=== PATIENT | male | born 1975 | race Two or more races ===

== ENCOUNTER 2016-08-21 11:54 | Inpatient (IN) | payer OTHER ==
[2016-08-21 12:53] VITALS: BMI 28.5
--- NOTE | 2016-08-21 15:03 | HP ---
COWS - Scale Resting Pulse: 1= [place] 81-100 Sweatin=Flushed/Facial Moisture Restless Observation: 1= Difficult to Sit Still Pupil Size: 1= Pupils >than Normal Bone or Joint Aches: 2= Severe Diffuse Aches Runny Nose/ Eye Tearin= Runny Nose/Eyes GI Upset > 30mins: 2= Nausea/Diarrhea Tremor Observation: 2= Slight Tremor Visible Yawning Observation: 1= 1-2x During Session Anxiety or Irritability: 2=Irritable/Anxious Goose Flesh Skin: 3=Piloerection COWS Score: 19 Admission ROS S - HPI Chief Complaint: requesting detoxification from heroin and othr opioids Allergies/Adverse Reactions: Allergies Allergy/AdvReac Type Severity Reaction Status Date / Time No Known Allergies Allergy Verified 08/21/16 14:46 History of Present Illness: 40 yo m with long history of opioid dependence started using age 22 withmultiple admissions for detoxification most recently at [facility] last year , deneis MDMA, cocaine, marijuana and oxycodone use, sniffs heroin daily last used today, sniffs cocaine on occasion a few times a week, no h/o injecting drug use of OD reported, no psychitaric illnesses or suicidal ideation. PMHx neg, no on any medications no h/o alcohol dependenced, seizures, DTs or intubation. Exam Limitations: No Limitations - Ebola screening Have you traveled outside of the country in the last 21 days: No Have you had contact with anyone from an Ebola affected area: No Have you been sick,other than usual withdrawal symptoms: No Do you have a fever: No - Review of Systems Constitutional: Chills, Diaphoresis, Loss of Appetite, Unintentional Wgt. Loss ( from drug use), Other (insomnia secondary to withdrawal drinks wine at night to go to sleep) EENT: reports: No Symptoms Reported, Other (lesions on skin on nose , herpes?) Respiratory: reports: No Symptoms reported Cardiac: reports: No Symptoms Reported GI: reports: Nausea, Poor Appetite, Poor Fluid Intake : reports: No Symptoms Reported Musculoskeletal: reports: Back Pain, Joint Pain, Other (from withdrawal) Neuro: reports: Tremors Endocrine: reports: No Symptoms Reported Hematology: reports: No Symptoms Reported Psychiatric: reports: Mood/Affect Appropiate, Orientated x3, Anxious, Depressed Other Systems: Reviewed and Negative Patient History - Patient Medical History Hx Anemia: No Hx Asthma: No Hx Chronic Obstructive Pulmonary Disease (COPD): No Hx Cancer: No Hx Cardiac Disorders: No Hx Congestive Heart Failure: No Hx Hypertension: No Hx Hypercholesterolemia: No Hx Pacemaker: No HX Cerebrovascular Accident: No Hx Seizures: No Hx Dementia: No Hx Diabetes: No Hx Gastrointestinal Disorders: No Hx Liver Disease: No Hx Genitourinary Disorders: No Hx Sexually Transmitted Disorders: No Hx Renal Disease (ESRD): No Hx Thyroid Disease: No Hx Human Immunodeficiency Virus (HIV): No (NEGATIVE last 04/12 NEGATIVE) Hx Hepatitis C: No Hx Depression: No Hx Suicide Attempt: No Hx Bipolar Disorder: No Hx Schizophrenia: No - Patient Surgical History Past Surgical History: Yes Hx Neurologic Surgery: No Hx Cataract Extraction: No Hx Cardiac Surgery: No Hx Lung Surgery: No Hx Breast Surgery: No Hx Breast Biopsy: No Hx Abdominal Surgery: No Hx Appendectomy: Yes ( A CHILD(6-7 YRS OLD)) Hx Cholecystectomy: No Hx Genitourinary Surgery: No Hx Section: No Hx Orthopedic Surgery: No Hx Hysterectomy: No Anesthesia Reaction: No - PPD History Previous Implant?: Yes Documented Results: Positive w/o proof Implanted On Prior [facility] Admission?: No PPD to be Administered?: No - Reproductive History Patient is a Female of Child Bearing Age (11 -55 yrs old): No - Smoking Cessation Smoking history: Current every day smoker Have you smoked in the past 12 months: Yes Aproximately how many cigarettes per day: 10 Cigars Per Day: 0 Hx Chewing Tobacco Use: No Initiated information on smoking cessation: Yes 'Breaking Loose' booklet given: 08/21/16 - Substance & Tx. History Hx Alcohol Use: Yes (1/2 bottle of wine daily , no withdrawal reported) Hx Substance Use: Yes Substance Use Type: Alcohol, Heroin Hx Substance Use Treatment: Yes (detoxifcation at [facility] last year, [facility] in past) - Substances Abused Heroin Route: Inhalation Frequency: Daily Amount used: 3-4 bags Age of first use: 23 Date of Last Use: 08/21/16 Cocaine Route: Inhalation Frequency: 3-6 times per week Amount used: 1/2 gm Age of first use: 17 Date of Last Use: 08/19/16 Family Disease History - Family Disease History Family Disease History: CA: Grandparent (), Father (COLON--ALIVE,ALCOHOL ,DSA), Other: Mother (ALCOHOL,DSA) Admission Physical Exam [facility] - Vital Signs Vital Signs: Vital Signs - 24 hr 08/21/16 12:51 Temperature 97.1 F L Pulse Rate 89 Respiratory 18 Rate Blood Pressure 135/79 - Physical General Appearance: Yes: Nourished, Appropriately Dressed, Disheveled, Mild Distress, Thin, Tremorous, Irritable, Sweating, Anxious HEENTM: Yes: EOMI, Hearing grossly Normal, Normal ENT Inspection, Normocephalic , Normal Voice, SCOOBY, Pharynx Normal Respiratory: Yes: Within Normal Limits, Chest Non-Tender, Lungs Clear, Normal Breath Sounds, No Respiratory Distress, No Accessory Muscle Use Neck: Yes: Within Normal Limits, No masses,lesions,Nodules, Supple Breast: Yes: Breast Exam Deferred Cardiology: Yes: Within Normal Limits, Regular Rhythm, Regular Rate, S1, S2 Abdominal: Yes: Within Normal Limits, Normal Bowel Sounds, Non Tender, Flat, Soft Genitourinary: Yes: Within Normal Limits Back: Yes: Within Normal Limits, Normal Inspection Musculoskeletal: Yes: Within Normal Limits, full range of Motion, Gait Steady Neurological: Yes: bilingual trainer II-XII NML intact, Fully Oriented, Alert, Motor Strength 5/5, Normal Response, Depressed Affect Integumentary: Yes: Normal Color, Warm, Diaphoresis Lymphatic: Yes: Within Normal Limits - Addiitonal Findings: withdrawal sx - Diagnostic (1) Cocaine dependence Current Visit: No Status: Inactive Qualifiers: Substance use status: uncomplicated Qualified Code(s): F14.20 - Cocaine dependence, uncomplicated (2) Alcohol dependence Current Visit: No Status: Inactive (3) Marijuana dependence Current Visit: No Status: Inactive (4) Nicotine dependence Current Visit: Yes Status: Chronic Qualifiers: Nicotine product type: cigarettes Substance use status: uncomplicated Qualified Code(s): F17.210 - Nicotine dependence, cigarettes, uncomplicated (5) Opioid dependence with withdrawal Current Visit: Yes Status: Acute Cleared for Admission [facility] - Detox or Rehab [facility] Level of Care: Medically Managed Detox Regimen/Protocol: Methadone [facility] Breath Alcohol Content Breath Alcohol Content: 0.040 Urine Drug Screen - Results Drug Screen Negative: No Urine Drug Screen Results: THC-Marijuana, YOKO-Cocaine, MDMA-Ecstasy, OXY- Oxycodone
[2016-08-21] MEDS ORDERED: guaiFENesin/D-METHORPHAN HB 10 ML UNIT-DOSE CUPS PO PRN (15:08)
[2016-08-21] MEDS ORDERED: P-EPHED 60MG/TRIPROLIDI 2.5MG TABLET PO PRN (15:08)
[2016-08-21] MEDS ORDERED: MAG HYDROX/AL HYDROX/SIMETH 30 ML UNIT-DOSE CUP PO PRN (15:08)
[2016-08-21] MEDS ORDERED: NICOTINE POLACRILEX 4 MG GUM BC PRN (15:08)
[2016-08-21] MEDS ORDERED: MAGNESIUM CITRATE 300 ML BOTTLE PO PRN (15:08)
[2016-08-21] MEDS ORDERED: ACETAMINOPHEN 325 MG TABLET (FP) PO PRN (15:08)
[2016-08-21] MEDS ORDERED: hydrOXYzine PAMOATE 50 MG CAPSULE (FP) PO PRN (15:08)
[2016-08-21] MEDS ORDERED: LOPERAMIDE HCL 2 MG CAPSULE PO PRN (15:08)
[2016-08-21] MEDS ORDERED: MENTHOL/PHENOL 1 EACH UD MM PRN (15:08)
[2016-08-21] MEDS ORDERED: MAGNESIUM HYDROX 2400MG/30ML ORAL SUSPENSION 30 ML CUP PO PRN (15:08)
[2016-08-21] MEDS ORDERED: METHADONE HCL 10 MG TABLET (FOR DETOX USE ONLY) PO ONE ×2 (16:30→23:00)
[2016-08-21] MEDS: diazePAM 5 MG TABLET PO PRN ×2 (17:29→22:18)
[2016-08-21] MEDS: BACITRACIN 0.9 GM PACKET TP SCH (17:29)
[2016-08-21] MEDS: NICOTINE 21 MG/24 HOURS TOPICAL PATCH TD SCH (17:30)
[2016-08-21 20:33] LABS: URINE APPEARANCE SLCLOUDY; URINE BILIRUBIN NEGATIVE (NEGATIVE); URINE BLOOD NEGATIVE (NEGATIVE); URINE COLOR YELLOW; URINE GLUCOSE (UA) NEGATIVE (NEGATIVE); URINE KETONE NEGATIVE (NEGATIVE); URINE LEUK ESTERASE NEGATIVE (NEGATIVE); URINE NITRITE NEGATIVE (NEGATIVE); URINE PROTEIN NEGATIVE (NEGATIVE); URINE UROBILINOGEN NEGATIVE E.U./dl (0.2-1.0)
[2016-08-21] MEDS: diphenhydrAMINE HCL 50 MG CAPSULE PO PRN (22:18)
[2016-08-21] MEDS: THIAMINE HCL 100 MG TABLET (FP) PO SCH (22:18)
[2016-08-22 09:36] LABS: HIV 1 & 2 AB NEGATIVE; HIV 1 AGp24 NEGATIVE
[2016-08-22] MEDS ORDERED: METHADONE HCL 10 MG TABLET (FOR DETOX USE ONLY) PO ONE (10:00)
[2016-08-22] MEDS: PRENATAL VITAMINS W/ FOLIC ACID TABLET (FP) PO SCH (10:16)
[2016-08-22] MEDS: BACITRACIN 0.9 GM PACKET TP SCH (10:16)
[2016-08-22] MEDS: NICOTINE 21 MG/24 HOURS TOPICAL PATCH TD SCH (10:17)
[2016-08-22] MEDS: diazePAM 5 MG TABLET PO PRN ×3 (10:17→22:41)
--- NOTE | 2016-08-22 10:20 | CONSULT ---
[facility] Psychiatric Consult - Data Date of interview: 08/22/16 Admission source: [facility] Identifying data: This is 40 years old male with no psychiatric hospitalization history intoxicated with : Cocaine, Heroin and Nicotine Substance Abuse History: - Smoking Cessation. Smoking history: Current every day smoker. Have you smoked in the past 12 months: Yes. Aproximately how many cigarettes per day: 10. Cigars Per Day: 0. Hx Chewing Tobacco Use: No. Initiated information on smoking cessation: Yes. 'Breaking Loose' booklet given : 08/21/16. - Substance & Tx. History. Hx Alcohol Use: Yes (1/2 bottle of wine daily , no withdrawal reported). Hx Substance Use: Yes. Substance Use Type: Alcohol, Heroin. Hx Substance Use Treatment: Yes (detoxifcation at [place] last year, [facility] in past). - Substances Abused. Heroin. Route: Inhalation. Frequency: Daily. Amount used: 3-4 bags. Age of first use: 23. Date of Last Use: 08/21/16. Cocaine. Route: Inhalation. Frequency: 3-6 times per week. Amount used: 1/2 gm. Age of first use: 17. Date of Last Use: 08/19/16 Medical History: Denies Psychiatric History: Denies Physical/Sexual Abuse/Trauma History: Denies Additional Comment: Observation. Detox Unit Care Protocol Mental Status Exam - Mental Status Exam Alert and Oriented to: Person Cognitive Function: Fair Patient Appearance: Unkempt Mood: Sad Affect: Flat Patient Behavior: Sedated Speech Pattern: Delayed Voice Loudness: Mildly Soft/Quiet Thought Process: Circumstantial Thought Disorder: Being Controlled Hallucinations: Denies Suicidal Ideation: Denies Homicidal Ideation: Denies Insight/Judgement: Fair Sleep: Difficulty falling asleep Appetite: Fair Muscle strength/Tone: Mild Hypotonicity Gait/Station: Shuffling Additional Comments: Observation. Detox Unit Care Protocol Psychiatric Findings - Problem List ([place] 1, 2,3) (1) Opioid dependence with withdrawal Current Visit: Yes Status: Acute (2) Nicotine dependence Current Visit: Yes Status: Chronic Qualifiers: Nicotine product type: cigarettes Substance use status: uncomplicated Qualified Code(s): F17.210 - Nicotine dependence, cigarettes, uncomplicated (3) Alcohol dependence Current Visit: Yes Status: Acute (4) Cannabis abuse Current Visit: Yes Status: Acute - Initial Treatment Plan Initial Treatment Plan: Observation. Detox Unit Care Protocol
[2016-08-22 10:49] LABS: MCH 29.9 pg (25.7-33.7); MCHC 33.7 g/dl (32.0-35.9); MEAN CELL VOLUME 88.7 fl (80-96); PLATELET COUNT 249 K/MM3 (134-434); RDW 14.2 % (11.9-15.9); WHITE BLOOD COUNT 10.3 K/mm3 (4.0-10.0)
[2016-08-22 10:53] LABS: ALBUMIN 3.9 g/dl (3.4-5.0); ALK PHOS 122 U/L (45-117); ANION GAP 10 (8-16); BILIRUBIN,TOTAL 0.2 mg/dL (0.2-1.0); CALCIUM 8.6 mg/dL (8.5-10.1); CO2 28 mmol/L (21-32); CREATININE 1.2 mg/dL (0.7-1.3); GLUCOSE,RANDOM 91 mg/dL (74-106); SGOT/AST 21 U/L (15-37); SGPT/ALT 28 U/L (12-78)
--- NOTE | 2016-08-22 12:30 | EKG ---
Test Reason : Blood Pressure : / mmHG Vent. Rate : 083 BPM Atrial Rate : 083 BPM P-R Int : 146 ms QRS Dur : 086 ms QT Int : 378 ms P-R-T Axes : 068 068 034 degrees QTc Int : 444 ms NORMAL SINUS RHYTHM NORMAL ECG NO PREVIOUS ECGS AVAILABLE Confirmed by LAYO FLORES, BRAYAN ([id number]) on 08/22/2016 12:30:19 PM Referred By: Confirmed By:BRAYAN VASQUES MD
[2016-08-22] MEDS: IBUPROFEN 400 MG TABLET (FP) PO PRN (13:06)
--- NOTE | 2016-08-22 14:28 | PN ---
BHS COWS - Scale Resting Pulse: 1= [place] 81-100 Sweatin= Chills/Flushing Restless Observation: 1= Difficult to Sit Still Pupil Size: 1= Pupils >than Normal Bone or Joint Aches: 1= Mild Discomfort Runny Nose/ Eye Tearin= Nasal Congestion GI Upset > 30mins: 1= Stomach Cramp Tremor Observation of Outstretched Hands: 1= Tremor [place], Not Seen Yawning Observation: 0= None Anxiety or Irritability: 2=Irritable/Anxious Goose Flesh Skin: 0=Smooth Skin COWS Score: 10 BHS Progress Note (SOAP) Subjective: interrupted sleep, sweats, otherwise better Objective: 08/22/16 14:26 Vital Signs Temperature 98.6 F 08/22/16 14:11 Pulse Rate 91 H 08/22/16 14:11 Respiratory Rate 20 08/22/16 14:11 Blood Pressure 105/64 08/22/16 14:11 O2 Sat by Pulse Oximetry (%) Laboratory Tests 08/21/16 08/21/16 08/22/16 14:00 19:00 06:00 WBC 10.3 H RBC 4.94 Hgb 14.7 Hct 43.8 MCV 88.7 MCHC 33.7 RDW 14.2 Plt Count 249 MPV 9.0 Sodium Potassium Chloride Carbon Dioxide Anion Gap BUN Creatinine Creat Clearance w eGFR Random Glucose Calcium Total Bilirubin AST ALT Alkaline Phosphatase Total Protein Albumin Urine Color Yellow Urine Appearance Slcloudy Urine pH 7.0 Ur Specific [place] 1.021 Urine Protein Negative Urine Glucose (UA) Negative Urine Ketones Negative Urine Blood Negative Urine Nitrite Negative Urine Bilirubin Negative Urine Urobilinogen Negative Ur Leukocyte Esterase Negative RPR Titer HIV 1&2 Antibody Screen Negative HIV P24 Antigen Negative 08/22/16 08/22/16 06:00 06:00 WBC RBC Hgb Hct MCV MCHC RDW Plt Count MPV Sodium 138 Potassium 4.1 Chloride 100 Carbon Dioxide 28 Anion Gap 10 BUN 15 Creatinine 1.2 Creat Clearance w eGFR > 60 Random Glucose 91 D Calcium 8.6 Total Bilirubin 0.2 D AST 21 ALT 28 D Alkaline Phosphatase 122 H Total Protein 7.0 Albumin 3.9 Urine Color Urine Appearance Urine pH Ur Specific [place] Urine Protein Urine Glucose (UA) Urine Ketones Urine Blood Urine Nitrite Urine Bilirubin Urine Urobilinogen Ur Leukocyte Esterase RPR Titer Nonreactive HIV 1&2 Antibody Screen HIV P24 Antigen pt aox3 in nad ambulating Assessment: 08/22/16 14:27 withdrawl sx;s Plan: cont. detox increase fluids
[2016-08-22] MEDS: THIAMINE HCL 100 MG TABLET (FP) PO SCH (22:38)
[2016-08-22] MEDS: diphenhydrAMINE HCL 50 MG CAPSULE PO PRN (22:39)
[2016-08-23] MEDS: diazePAM 5 MG TABLET PO PRN ×4 (06:03→22:37)
[2016-08-23] MEDS ORDERED: METHADONE HCL 5 MG TABLET (FOR DETOX USE ONLY) PO ONE (10:00)
[2016-08-23] MEDS: PRENATAL VITAMINS W/ FOLIC ACID TABLET (FP) PO SCH (10:10)
[2016-08-23] MEDS: BACITRACIN 0.9 GM PACKET TP SCH (10:11)
[2016-08-23] MEDS: NICOTINE 21 MG/24 HOURS TOPICAL PATCH TD SCH (10:11)
--- NOTE | 2016-08-23 11:49 | PN ---
S COWS - Scale Resting Pulse: 1= [place] 81-100 Sweatin= Chills/Flushing Restless Observation: 3= Extraneous Movement Pupil Size: 2= Moderately Dilated Bone or Joint Aches: 4=Acute Joint/Muscle Pain Runny Nose/ Eye Tearin= Nasal Congestion GI Upset > 30mins: 1= Stomach Cramp Tremor Observation of Outstretched Hands: 1= Tremor [place], Not Seen Yawning Observation: 2= >3x During Session Anxiety or Irritability: 2=Irritable/Anxious Goose Flesh Skin: 0=Smooth Skin COWS Score: 18 BHS Progress Note (SOAP) Subjective: ANXIETY,SWEATS,FATIGUE. Objective: 08/23/16 12:03 Vital Signs Temperature 97.0 F L 08/23/16 10:36 Pulse Rate 89 08/23/16 10:36 Respiratory Rate 20 08/23/16 10:36 Blood Pressure 115/76 08/23/16 10:36 O2 Sat by Pulse Oximetry (%) Laboratory Last Values WBC 10.3 K/mm3 (4.0-10.0) H 08/22/16 06:00 RBC 4.94 M/mm3 (4.00-5.60) 08/22/16 06:00 Hgb 14.7 GM/dL (11.7-16.9) 08/22/16 06:00 Hct 43.8 % (35.4-49) 08/22/16 06:00 MCV 88.7 fl (80-96) 08/22/16 06:00 MCHC 33.7 g/dl (32.0-35.9) 08/22/16 06:00 RDW 14.2 % (11.9-15.9) 08/22/16 06:00 Plt Count 249 K/MM3 (134-434) 08/22/16 06:00 MPV 9.0 fl (7.5-11.1) 08/22/16 06:00 Sodium 138 mmol/L (136-145) 08/22/16 06:00 Potassium 4.1 mmol/L (3.5-5.1) 08/22/16 06:00 Chloride 100 mmol/L (98-107) 08/22/16 06:00 Carbon Dioxide 28 mmol/L (21-32) 08/22/16 06:00 Anion Gap 10 (8-16) 08/22/16 06:00 BUN 15 mg/dL (7-18) 08/22/16 06:00 Creatinine 1.2 mg/dL (0.7-1.3) 08/22/16 06:00 Creat Clearance w eGFR > 60 (>60) 08/22/16 06:00 Random Glucose 91 mg/dL (74-106) D 08/22/16 06:00 Calcium 8.6 mg/dL (8.5-10.1) 08/22/16 06:00 Total Bilirubin 0.2 mg/dL (0.2-1.0) D 08/22/16 06:00 AST 21 U/L (15-37) 08/22/16 06:00 ALT 28 U/L (12-78) D 08/22/16 06:00 Alkaline Phosphatase 122 U/L (45-117) H 08/22/16 06:00 Total Protein 7.0 g/dl (6.4-8.2) 08/22/16 06:00 Albumin 3.9 g/dl (3.4-5.0) 08/22/16 06:00 Urine Color Yellow 08/21/16 19:00 Urine Appearance Slcloudy 08/21/16 19:00 Urine pH 7.0 (5.0-8.0) 08/21/16 19:00 Ur Specific [place] 1.021 (1.001-1.035) 08/21/16 19:00 Urine Protein Negative (NEGATIVE) 08/21/16 19:00 Urine Glucose (UA) Negative (NEGATIVE) 08/21/16 19:00 Urine Ketones Negative (NEGATIVE) 08/21/16 19:00 Urine Blood Negative (NEGATIVE) 08/21/16 19:00 Urine Nitrite Negative (NEGATIVE) 08/21/16 19:00 Urine Bilirubin Negative (NEGATIVE) 08/21/16 19:00 Urine Urobilinogen Negative E.U./dl (0.2-1.0) 08/21/16 19:00 Ur Leukocyte Esterase Negative (NEGATIVE) 08/21/16 19:00 RPR Titer Nonreactive (NONREACTIVE) 08/22/16 06:00 HIV 1&2 Antibody Screen Negative 08/21/16 14:00 HIV P24 Antigen Negative 08/21/16 14:00 Assessment: 08/23/16 12:03 WITHDRAWAL SX Plan: CONTINUE DETOX
[2016-08-23] MEDS: THIAMINE HCL 100 MG TABLET (FP) PO SCH (22:37)
[2016-08-23] MEDS: diphenhydrAMINE HCL 50 MG CAPSULE PO PRN (22:37)
[2016-08-24] MEDS: diazePAM 5 MG TABLET PO PRN ×3 (05:43→14:10)
[2016-08-24] MEDS ORDERED: METHADONE HCL 5 MG TABLET (FOR DETOX USE ONLY) PO ONE (10:00)
[2016-08-24] MEDS: NICOTINE 21 MG/24 HOURS TOPICAL PATCH TD SCH (10:08)
[2016-08-24] MEDS: PRENATAL VITAMINS W/ FOLIC ACID TABLET (FP) PO SCH (10:08)
[2016-08-24] MEDS: BACITRACIN 0.9 GM PACKET TP SCH (10:08)
--- NOTE | 2016-08-24 10:44 | PN ---
S COWS - Scale Resting Pulse: 1= ME 81-100 Sweatin= Chills/Flushing Restless Observation: 3= Extraneous Movement Pupil Size: 2= Moderately Dilated Bone or Joint Aches: 4=Acute Joint/Muscle Pain Runny Nose/ Eye Tearin= Nasal Congestion GI Upset > 30mins: 1= Stomach Cramp Tremor Observation of Outstretched Hands: 1= Tremor [place], Not Seen Yawning Observation: 2= >3x During Session Anxiety or Irritability: 2=Irritable/Anxious Goose Flesh Skin: 0=Smooth Skin COWS Score: 18 BHS Progress Note (SOAP) Subjective: ANXIETY,SWEAT,RESTLESSNESS. Objective: 08/24/16 10:43 Vital Signs Temperature 97.5 F L 08/24/16 09:56 Pulse Rate 100 H 08/24/16 09:56 Respiratory Rate 20 08/24/16 09:56 Blood Pressure 127/80 08/24/16 09:56 O2 Sat by Pulse Oximetry (%) Laboratory Last Values WBC 10.3 K/mm3 (4.0-10.0) H 08/22/16 06:00 RBC 4.94 M/mm3 (4.00-5.60) 08/22/16 06:00 Hgb 14.7 GM/dL (11.7-16.9) 08/22/16 06:00 Hct 43.8 % (35.4-49) 08/22/16 06:00 MCV 88.7 fl (80-96) 08/22/16 06:00 MCHC 33.7 g/dl (32.0-35.9) 08/22/16 06:00 RDW 14.2 % (11.9-15.9) 08/22/16 06:00 Plt Count 249 K/MM3 (134-434) 08/22/16 06:00 MPV 9.0 fl (7.5-11.1) 08/22/16 06:00 Sodium 138 mmol/L (136-145) 08/22/16 06:00 Potassium 4.1 mmol/L (3.5-5.1) 08/22/16 06:00 Chloride 100 mmol/L (98-107) 08/22/16 06:00 Carbon Dioxide 28 mmol/L (21-32) 08/22/16 06:00 Anion Gap 10 (8-16) 08/22/16 06:00 BUN 15 mg/dL (7-18) 08/22/16 06:00 Creatinine 1.2 mg/dL (0.7-1.3) 08/22/16 06:00 Creat Clearance w eGFR > 60 (>60) 08/22/16 06:00 Random Glucose 91 mg/dL (74-106) D 08/22/16 06:00 Calcium 8.6 mg/dL (8.5-10.1) 08/22/16 06:00 Total Bilirubin 0.2 mg/dL (0.2-1.0) D 08/22/16 06:00 AST 21 U/L (15-37) 08/22/16 06:00 ALT 28 U/L (12-78) D 08/22/16 06:00 Alkaline Phosphatase 122 U/L (45-117) H 08/22/16 06:00 Total Protein 7.0 g/dl (6.4-8.2) 08/22/16 06:00 Albumin 3.9 g/dl (3.4-5.0) 08/22/16 06:00 Urine Color Yellow 08/21/16 19:00 Urine Appearance Slcloudy 08/21/16 19:00 Urine pH 7.0 (5.0-8.0) 08/21/16 19:00 Ur Specific [place] 1.021 (1.001-1.035) 08/21/16 19:00 Urine Protein Negative (NEGATIVE) 08/21/16 19:00 Urine Glucose (UA) Negative (NEGATIVE) 08/21/16 19:00 Urine Ketones Negative (NEGATIVE) 08/21/16 19:00 Urine Blood Negative (NEGATIVE) 08/21/16 19:00 Urine Nitrite Negative (NEGATIVE) 08/21/16 19:00 Urine Bilirubin Negative (NEGATIVE) 08/21/16 19:00 Urine Urobilinogen Negative E.U./dl (0.2-1.0) 08/21/16 19:00 Ur Leukocyte Esterase Negative (NEGATIVE) 08/21/16 19:00 RPR Titer Nonreactive (NONREACTIVE) 08/22/16 06:00 HIV 1&2 Antibody Screen Negative 08/21/16 14:00 HIV P24 Antigen Negative 08/21/16 14:00 Assessment: 08/24/16 10:44 WITHDRAWAL SX Plan: CONTINUE DETOX
[2016-08-24] MEDS: THIAMINE HCL 100 MG TABLET (FP) PO SCH (22:01)
[2016-08-24] MEDS: diphenhydrAMINE HCL 50 MG CAPSULE PO PRN (22:01)
[2016-08-25] MEDS: IBUPROFEN 400 MG TABLET (FP) PO PRN (05:32)
--- NOTE | 2016-08-25 09:03 | PN ---
BHS Progress Note (SOAP) Subjective: sweating,interrupted sleep,restless Objective: 08/25/16 09:02 Vital Signs - 8 hr 08/25/16 08/25/16 03:23 06:30 Temperature 96.5 F L Pulse Rate 96 H Respiratory 18 18 Rate Blood Pressure 134/72 Laboratory Last Values WBC 10.3 K/mm3 (4.0-10.0) H 08/22/16 06:00 RBC 4.94 M/mm3 (4.00-5.60) 08/22/16 06:00 Hgb 14.7 GM/dL (11.7-16.9) 08/22/16 06:00 Hct 43.8 % (35.4-49) 08/22/16 06:00 MCV 88.7 fl (80-96) 08/22/16 06:00 MCHC 33.7 g/dl (32.0-35.9) 08/22/16 06:00 RDW 14.2 % (11.9-15.9) 08/22/16 06:00 Plt Count 249 K/MM3 (134-434) 08/22/16 06:00 MPV 9.0 fl (7.5-11.1) 08/22/16 06:00 Sodium 138 mmol/L (136-145) 08/22/16 06:00 Potassium 4.1 mmol/L (3.5-5.1) 08/22/16 06:00 Chloride 100 mmol/L (98-107) 08/22/16 06:00 Carbon Dioxide 28 mmol/L (21-32) 08/22/16 06:00 Anion Gap 10 (8-16) 08/22/16 06:00 BUN 15 mg/dL (7-18) 08/22/16 06:00 Creatinine 1.2 mg/dL (0.7-1.3) 08/22/16 06:00 Creat Clearance w eGFR > 60 (>60) 08/22/16 06:00 Random Glucose 91 mg/dL (74-106) D 08/22/16 06:00 Calcium 8.6 mg/dL (8.5-10.1) 08/22/16 06:00 Total Bilirubin 0.2 mg/dL (0.2-1.0) D 08/22/16 06:00 AST 21 U/L (15-37) 08/22/16 06:00 ALT 28 U/L (12-78) D 08/22/16 06:00 Alkaline Phosphatase 122 U/L (45-117) H 08/22/16 06:00 Total Protein 7.0 g/dl (6.4-8.2) 08/22/16 06:00 Albumin 3.9 g/dl (3.4-5.0) 08/22/16 06:00 Urine Color Yellow 08/21/16 19:00 Urine Appearance Slcloudy 08/21/16 19:00 Urine pH 7.0 (5.0-8.0) 08/21/16 19:00 Ur Specific [place] 1.021 (1.001-1.035) 08/21/16 19:00 Urine Protein Negative (NEGATIVE) 08/21/16 19:00 Urine Glucose (UA) Negative (NEGATIVE) 08/21/16 19:00 Urine Ketones Negative (NEGATIVE) 08/21/16 19:00 Urine Blood Negative (NEGATIVE) 08/21/16 19:00 Urine Nitrite Negative (NEGATIVE) 08/21/16 19:00 Urine Bilirubin Negative (NEGATIVE) 08/21/16 19:00 Urine Urobilinogen Negative E.U./dl (0.2-1.0) 08/21/16 19:00 Ur Leukocyte Esterase Negative (NEGATIVE) 08/21/16 19:00 RPR Titer Nonreactive (NONREACTIVE) 08/22/16 06:00 Hepatitis C Antibody <0.1 s/co ratio (0.0-0.9) 08/21/16 11:50 HIV 1&2 Antibody Screen Negative 08/21/16 14:00 HIV P24 Antigen Negative 08/21/16 14:00 labs noted Assessment: 08/25/16 09:03 withdrawal sx. Plan: continue detox
[2016-08-25] MEDS ORDERED: METHADONE HCL 10 MG TABLET (FOR DETOX USE ONLY) PO ONE (10:00)
[2016-08-25] MEDS: NICOTINE 21 MG/24 HOURS TOPICAL PATCH TD SCH (10:17)
[2016-08-25] MEDS: PRENATAL VITAMINS W/ FOLIC ACID TABLET (FP) PO SCH (10:17)
[2016-08-25] MEDS: BACITRACIN 0.9 GM PACKET TP SCH (10:17)
[2016-08-25] MEDS: diphenhydrAMINE HCL 50 MG CAPSULE PO PRN (22:25)
[2016-08-25] MEDS: THIAMINE HCL 100 MG TABLET (FP) PO SCH (22:25)
[2016-08-26] MEDS: diphenhydrAMINE HCL 50 MG CAPSULE PO PRN (00:41)
[2016-08-26] MEDS ORDERED: METHADONE HCL 5 MG TABLET (FOR DETOX USE ONLY) PO ONE (06:00)
[2016-08-26 06:28] VITALS: BP 120/80; PULSE 94; TEMP 97.1
--- NOTE | 2016-08-26 11:06 | DS ---
[facility] Detox Discharge Summary Admission Date: 08/21/16 Discharge Date: 08/26/16 - History Present History: Alcohol Dependence, Cocaine Dependence, Opioid Dependence Pertinent Past History: Positive PPD (had chest xray 05/2016 negative) - Physical Exam Results Vital Signs: Vital Signs Temperature 97.1 F L 08/26/16 06:27 Pulse Rate 94 H 08/26/16 06:27 Respiratory Rate 18 08/26/16 06:27 Blood Pressure 120/80 08/26/16 06:27 O2 Sat by Pulse Oximetry (%) Pertinent Admission Physical Exam Findings: Withdrawal symptoms Laboratory Tests 08/21/16 08/21/16 08/21/16 11:50 14:00 19:00 WBC RBC Hgb Hct MCV MCHC RDW Plt Count MPV Sodium Potassium Chloride Carbon Dioxide Anion Gap BUN Creatinine Creat Clearance w eGFR Random Glucose Calcium Total Bilirubin AST ALT Alkaline Phosphatase Total Protein Albumin Urine Color Yellow Urine Appearance Slcloudy Urine pH 7.0 Ur Specific [place] 1.021 Urine Protein Negative Urine Glucose (UA) Negative Urine Ketones Negative Urine Blood Negative Urine Nitrite Negative Urine Bilirubin Negative Urine Urobilinogen Negative Ur Leukocyte Esterase Negative RPR Titer Hepatitis C Antibody <0.1 HIV 1&2 Antibody Screen Negative HIV P24 Antigen Negative 08/22/16 08/22/16 08/22/16 06:00 06:00 06:00 WBC 10.3 H RBC 4.94 Hgb 14.7 Hct 43.8 MCV 88.7 MCHC 33.7 RDW 14.2 Plt Count 249 MPV 9.0 Sodium 138 Potassium 4.1 Chloride 100 Carbon Dioxide 28 Anion Gap 10 BUN 15 Creatinine 1.2 Creat Clearance w eGFR > 60 Random Glucose 91 D Calcium 8.6 Total Bilirubin 0.2 D AST 21 ALT 28 D Alkaline Phosphatase 122 H Total Protein 7.0 Albumin 3.9 Urine Color Urine Appearance Urine pH Ur Specific [place] Urine Protein Urine Glucose (UA) Urine Ketones Urine Blood Urine Nitrite Urine Bilirubin Urine Urobilinogen Ur Leukocyte Esterase RPR Titer Nonreactive Hepatitis C Antibody HIV 1&2 Antibody Screen HIV P24 Antigen Labs noted DI: Chest xray 05/2016 negative - Treatment Hospital Course: Detox Protocol Followed, Detoxed Safely, Responded well, Discharged Condition Good - Medication Discharge Medications: Ambulatory Orders NK [No Known Home Medication] 04/25/15 - Diagnosis (1) Cannabis abuse Status: Chronic (2) Opioid dependence with withdrawal Status: Acute (3) Nicotine dependence Status: Chronic Qualifiers: Nicotine product type: cigarettes Substance use status: uncomplicated Qualified Code(s): F17.210 - Nicotine dependence, cigarettes, uncomplicated (4) Alcohol dependence with uncomplicated withdrawal Status: Acute (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
== END 2016-08-26 08:31 | disposition home or self-care (01) | DRG 773 ==
LOC: YASAS 11:54 → Y6N 15:47 → Y3N 08-22 14:25
PROVIDERS: ADMIT Internal Medicine Addiction Medicine; ATTEND Internal Medicine Addiction Medicine
PROC: HZ2ZZZZ Detoxification Services for Substance Abuse Treatment (ICD-10-PCS; principal; 2016-08-21)
DX: F11.23 Opioid dependence with withdrawal (principal); F10.230 Alcohol dependence with withdrawal, uncomplicated; F14.20 Cocaine dependence, uncomplicated; F12.20 Cannabis dependence, uncomplicated; F17.210 Nicotine dependence, cigarettes, uncomplicated; R76.11 Nonspecific reaction to tuberculin skin test without active tuberculosis
CPT/HCPCS: 36415; 80053; 81003; 85027; 86593; 86803; 87389; 93005; 93010

== ENCOUNTER 2017-12-03 12:56 | Inpatient (IN) | payer OTHER ==
[2017-12-03 14:41] VITALS: BMI 28.2
--- NOTE | 2017-12-03 20:59 | HP ---
COWS - Scale Resting Pulse: 0= [place] 80 or Below Sweatin=Flushed/Facial Moisture Restless Observation: 1= Difficult to Sit Still Pupil Size: 1= Pupils >than Normal Bone or Joint Aches: 2= Severe Diffuse Aches Runny Nose/ Eye Tearin= Runny Nose/Eyes GI Upset > 30mins: 1= Stomach Cramp Tremor Observation: 2= Slight Tremor Visible Yawning Observation: 0= None Anxiety or Irritability: 2=Irritable/Anxious Goose Flesh Skin: 0=Smooth Skin COWS Score: 13 CIWA Score - CIWA Score Nausea/Vomitin Muscle Tremors: 3 Anxiety: 3 Agitation: 3 Paroxysmal Sweats: 1-Minimal Palms Moist Orientation: 0-Oriented Tacttile Disturbances: 0-None Auditory Disturbances: 0-None Visual Disturbances: 0-None Headache: 3-Moderate CIWA-Ar Total Score: 15 Admission ROS BHS - HPI Chief Complaint: Heroin and alcohol withdrawal symptoms Allergies/Adverse Reactions: Allergies Allergy/AdvReac Type Severity Reaction Status Date / Time No Known Allergies Allergy Verified 12/03/17 17:16 History of Present Illness: 42 years old male with a long history of alcohol and heroin dependence is seeking admission to detox. Patient last detox was in September at [facility]. He reports 30 months of of sobriety. He reports medical history of hyperlipidemia, anxiety and depression. He denies suicide attempt and suicidal ideation at this time. Exam Limitations: No Limitations - Ebola screening Have you traveled outside of the country in the last 21 days: No Have you had contact with anyone from an Ebola affected area: No Have you been sick,other than usual withdrawal symptoms: No Do you have a fever: No - Review of Systems Constitutional: Chills, Loss of Appetite, Malaise, Night Sweats, Changes in sleep EENT: reports: Nose Congestion Respiratory: reports: No Symptoms reported Cardiac: reports: No Symptoms Reported GI: reports: Poor Appetite, Poor Fluid Intake, Abdominal cramping : reports: No Symptoms Reported Musculoskeletal: reports: Back Pain Integumentary: reports: Dryness, Flushing Neuro: reports: Tingling, Tremors Endocrine: reports: No Symptoms Reported Hematology: reports: No Symptoms Reported Psychiatric: reports: Mood/Affect Appropiate, Orientated x3 Other Systems: Reviewed and Negative Patient History - Patient Medical History Hx Anemia: No Hx Asthma: No Hx Chronic Obstructive Pulmonary Disease (COPD): No Hx Cancer: No Hx Cardiac Disorders: No Hx Congestive Heart Failure: No Hx Hypertension: No Hx Hypercholesterolemia: Yes (Not on medications ) Hx Pacemaker: No HX Cerebrovascular Accident: No Hx Seizures: No Hx Dementia: No Hx Diabetes: No Hx Gastrointestinal Disorders: No Hx Liver Disease: No Hx Genitourinary Disorders: No Hx Sexually Transmitted Disorders: No Hx Renal Disease (ESRD): No Hx Thyroid Disease: No Hx Human Immunodeficiency Virus (HIV): No (Negative 2016) Hx Hepatitis C: No Hx Depression: Yes Hx Suicide Attempt: No (Denies suicide attempt and suicidal ideation at this time) Hx Bipolar Disorder: No Hx Schizophrenia: No - Patient Surgical History Past Surgical History: Yes Hx Neurologic Surgery: No Hx Cataract Extraction: No Hx Cardiac Surgery: No Hx Lung Surgery: No Hx Abdominal Surgery: No Hx Appendectomy: Yes ( A CHILD(6-7 YRS OLD)) Hx Cholecystectomy: No Hx Genitourinary Surgery: No Hx Section: No Hx Orthopedic Surgery: No Hx Hysterectomy: No Anesthesia Reaction: No - PPD History Previous Implant?: Yes (PPD POSITIVE ) Documented Results: Positive w/o proof Implanted On Prior R Admission?: No - Reproductive History Patient is a Female of Child Bearing Age (11 -55 yrs old): No (Male) - Smoking Cessation Smoking history: Current every day smoker Have you smoked in the past 12 months: Yes Aproximately how many cigarettes per day: 10 Cigars Per Day: 0 Hx Chewing Tobacco Use: No Initiated information on smoking cessation: Yes 'Breaking Loose' booklet given: 12/03/17 - Substance & Tx. History Hx Alcohol Use: Yes Hx Substance Use: Yes Substance Use Type: Cocaine, Heroin, Marijuana Hx Substance Use Treatment: Yes ([facility]) - Substances Abused Heroin Route: Inhalation Frequency: Daily Amount used: 7-9 bags Age of first use: 25 Date of Last Use: 12/03/17 Cocaine Route: Inhalation Frequency: Daily Amount used: $30-40 Age of first use: 18 Date of Last Use: 12/02/17 Alcohol-whisky/beer Route: Oral Frequency: Daily Amount used: 1 pt./1-6 pk. Age of first use: 17 Date of Last Use: 12/02/17 Family Disease History - Family Disease History Family Disease History: CA: Grandparent (), Father (COLON--ALIVE,ALCOHOL ,DSA), Other: Mother (ALCOHOL,DSA) Admission Physical Exam [facility] - Vital Signs Vital Signs: Vital Signs - 24 hr 12/03/17 14:37 Temperature 96.9 F L Pulse Rate 72 Respiratory 20 Rate Blood Pressure 123/69 - Physical General Appearance: Yes: Moderate Distress, Tremorous, Irritable, Sweating, Anxious HEENTM: Yes: EOMI, Normal ENT Inspection, Normal Voice, SCOOBY Respiratory: Yes: Lungs Clear, Normal Breath Sounds, No Respiratory Distress Neck: Yes: Supple Breast: Yes: Breast Exam Deferred Cardiology: Yes: Regular Rhythm, Regular Rate Abdominal: Yes: Normal Bowel Sounds, Soft Genitourinary: Yes: Within Normal Limits Back: Yes: Normal Inspection Musculoskeletal: Yes: Back pain, Muscle Pain, Muscle weakness Extremities: Yes: Tremors Neurological: Yes: Alert, Normal Mood/Affect Integumentary: Yes: Dry Lymphatic: Yes: Within Normal Limits - Diagnostic (1) Alcohol dependence with uncomplicated withdrawal Current Visit: Yes Status: Chronic (2) Opioid dependence with withdrawal Current Visit: Yes Status: Chronic (3) Anxiety disorder Current Visit: Yes Status: Chronic Qualifiers: Anxiety disorder type: unspecified anxiety disorder Qualified Code(s): F41.9 - Anxiety disorder, unspecified (4) Cannabis abuse Current Visit: Yes Status: Chronic (5) Depression Current Visit: Yes Status: Chronic Qualifiers: Depression Type: unspecified Qualified Code(s): F32.9 - Major depressive disorder, single episode, unspecified (6) Hyperlipidemia Current Visit: Yes Status: Chronic Qualifiers: Hyperlipidemia type: unspecified Qualified Code(s): E78.5 - Hyperlipidemia , unspecified (7) Nicotine dependence Current Visit: Yes Status: Chronic Qualifiers: Nicotine product type: cigarettes Substance use status: uncomplicated Qualified Code(s): F17.210 - Nicotine dependence, cigarettes, uncomplicated Cleared for Admission S - Detox or Rehab [facility] Level of Care: Medically Managed Detox Regimen/Protocol: Methadone/Librium S Breath Alcohol Content Breath Alcohol Content: 0 Urine Drug Screen - Results Drug Screen Negative: No Urine Drug Screen Results: THC-Marijuana, YOKO-Cocaine, OPI-Opiates
[2017-12-03] MEDS ORDERED: MAG HYDROX/AL HYDROX/SIMETH 30 ML UNIT-DOSE CUP PO PRN (21:10)
[2017-12-03] MEDS ORDERED: IBUPROFEN 400 MG TABLET (FP) PO PRN (21:10)
[2017-12-03] MEDS ORDERED: chlordiazePOXIDE HCL 25 MG CAPSULE PO PRN (21:10)
[2017-12-03] MEDS ORDERED: LOPERAMIDE HCL 2 MG CAPSULE PO PRN (21:10)
[2017-12-03] MEDS ORDERED: MAGNESIUM CITRATE 300 ML BOTTLE PO PRN (21:10)
[2017-12-03] MEDS ORDERED: NICOTINE POLACRILEX 2 MG GUM BC PRN (21:10)
[2017-12-03] MEDS ORDERED: P-EPHED 60MG/TRIPROLIDI 2.5MG TABLET PO PRN (21:10)
[2017-12-03] MEDS ORDERED: guaiFENesin/D-METHORPHAN HB 10 ML UNIT-DOSE CUPS PO PRN (21:10)
[2017-12-03] MEDS ORDERED: MAGNESIUM HYDROX 2400MG/30ML ORAL SUSPENSION 30 ML CUP PO PRN (21:10)
[2017-12-03] MEDS ORDERED: METHADONE HCL 10 MG TABLET (FOR DETOX USE ONLY) PO ONE ×2 (21:10→23:00)
[2017-12-03] MEDS ORDERED: MENTHOL/PHENOL 1 EACH UD MM PRN (21:10)
[2017-12-03] MEDS ORDERED: ACETAMINOPHEN 325 MG TABLET (FP) PO PRN (21:10)
--- NOTE | 2017-12-03 21:21 | HP ---
COWS - Scale Resting Pulse: 0= [place] 80 or Below Sweatin=Flushed/Facial Moisture Restless Observation: 1= Difficult to Sit Still Pupil Size: 1= Pupils >than Normal Bone or Joint Aches: 2= Severe Diffuse Aches Runny Nose/ Eye Tearin= Runny Nose/Eyes GI Upset > 30mins: 1= Stomach Cramp Tremor Observation: 2= Slight Tremor Visible Yawning Observation: 0= None Anxiety or Irritability: 2=Irritable/Anxious Goose Flesh Skin: 0=Smooth Skin COWS Score: 13 CIWA Score - CIWA Score Nausea/Vomitin Muscle Tremors: 3 Anxiety: 3 Agitation: 3 Paroxysmal Sweats: 1-Minimal Palms Moist Orientation: 0-Oriented Tacttile Disturbances: 0-None Auditory Disturbances: 0-None Visual Disturbances: 0-None Headache: 3-Moderate CIWA-Ar Total Score: 15 Admission ROS S - HPI Allergies/Adverse Reactions: Allergies Allergy/AdvReac Type Severity Reaction Status Date / Time No Known Allergies Allergy Verified 12/03/17 17:16 - Ebola screening Have you traveled outside of the country in the last 21 days: No Have you had contact with anyone from an Ebola affected area: No Have you been sick,other than usual withdrawal symptoms: No Do you have a fever: No Patient History - Patient Medical History Hx Anemia: No Hx Asthma: No Hx Chronic Obstructive Pulmonary Disease (COPD): No Hx Cancer: No Hx Cardiac Disorders: No Hx Congestive Heart Failure: No Hx Hypertension: No Hx Hypercholesterolemia: Yes (Not on medications ) Hx Pacemaker: No HX Cerebrovascular Accident: No Hx Seizures: No Hx Dementia: No Hx Diabetes: No Hx Gastrointestinal Disorders: No Hx Liver Disease: No Hx Genitourinary Disorders: No Hx Sexually Transmitted Disorders: No Hx Renal Disease (ESRD): No Hx Thyroid Disease: No Hx Human Immunodeficiency Virus (HIV): No (Negative 2015) Hx Hepatitis C: No Hx Depression: Yes Hx Suicide Attempt: No (Denies suicide attempt and suicidal ideation at this time) Hx Bipolar Disorder: No Hx Schizophrenia: No - Patient Surgical History Past Surgical History: Yes Hx Neurologic Surgery: No Hx Cataract Extraction: No Hx Cardiac Surgery: No Hx Lung Surgery: No Hx Breast Surgery: No Hx Breast Biopsy: No Hx Abdominal Surgery: No Hx Appendectomy: Yes ( A CHILD(6-7 YRS OLD)) Hx Cholecystectomy: No Hx Genitourinary Surgery: No Hx Section: No Hx Orthopedic Surgery: No Hx Hysterectomy: No Anesthesia Reaction: No - PPD History Previous Implant?: Yes (PPD POSITIVE ) Documented Results: Positive w/o proof Implanted On Prior R Admission?: No - Smoking Cessation Smoking history: Current every day smoker Have you smoked in the past 12 months: Yes Aproximately how many cigarettes per day: 10 Cigars Per Day: 0 Hx Chewing Tobacco Use: No Initiated information on smoking cessation: Yes - Substances Abused Heroin Route: Inhalation Frequency: Daily Amount used: 7-9 bags Age of first use: 25 Date of Last Use: 12/03/17 Cocaine Route: Inhalation Frequency: Daily Amount used: $30-40 Age of first use: 18 Date of Last Use: 12/02/17 Alcohol-whisky/beer Route: Oral Frequency: Daily Amount used: 1 pt./1-6 pk. Age of first use: 17 Date of Last Use: 12/02/17 Family Disease History - Family Disease History Family Disease History: CA: Grandparent (), Father (COLON--ALIVE,ALCOHOL ,DSA), Other: Mother (ALCOHOL,DSA) Admission Physical Exam S - Vital Signs Vital Signs: Vital Signs - 24 hr 12/03/17 14:37 Temperature 96.9 F L Pulse Rate 72 Respiratory 20 Rate Blood Pressure 123/69 - Diagnostic (1) Alcohol dependence with uncomplicated withdrawal Current Visit: Yes Status: Chronic (2) Opioid dependence with withdrawal Current Visit: Yes Status: Chronic (3) Anxiety disorder Current Visit: Yes Status: Chronic Qualifiers: Anxiety disorder type: unspecified anxiety disorder Qualified Code(s): F41.9 - Anxiety disorder, unspecified (4) Cannabis abuse Current Visit: Yes Status: Chronic (5) Depression Current Visit: Yes Status: Chronic Qualifiers: Depression Type: unspecified Qualified Code(s): F32.9 - Major depressive disorder, single episode, unspecified (6) Hyperlipidemia Current Visit: Yes Status: Chronic Qualifiers: Hyperlipidemia type: unspecified Qualified Code(s): E78.5 - Hyperlipidemia , unspecified (7) Nicotine dependence Current Visit: Yes Status: Chronic Qualifiers: Nicotine product type: cigarettes Substance use status: uncomplicated Qualified Code(s): F17.210 - Nicotine dependence, cigarettes, uncomplicated BHS Breath Alcohol Content Breath Alcohol Content: 0 Urine Drug Screen - Results Drug Screen Negative: No Urine Drug Screen Results: THC-Marijuana, YOKO-Cocaine, OPI-Opiates
[2017-12-03] MEDS: THIAMINE HCL 100 MG TABLET (FP) PO SCH (21:59)
[2017-12-03] MEDS: chlordiazePOXIDE HCL 25 MG CAPSULE PO SCH (22:00)
[2017-12-03] MEDS ORDERED: MELATONIN 5 MG TABLETS PO PRN (22:00)
[2017-12-04] MEDS: chlordiazePOXIDE HCL 25 MG CAPSULE PO SCH ×4 (05:41→22:08)
[2017-12-04] MEDS ORDERED: METHADONE HCL 10 MG TABLET (FOR DETOX USE ONLY) PO SCH (10:00)
[2017-12-04 10:29] LABS: HEMATOCRIT 39.5 % (35.4-49); HEMOGLOBIN 13.5 GM/dL (11.7-16.9); MCH 30.5 pg (25.7-33.7); MCHC 34.2 g/dl (32.0-35.9); MEAN CELL VOLUME 89.3 fl (80-96); MEAN PLT VOLUME 8.9 fl (7.5-11.1); PLATELET COUNT 260 K/MM3 (134-434); RBC 4.43 M/mm3 (4.00-5.60); RDW 14.1 % (11.9-15.9); WHITE BLOOD COUNT 8.1 K/mm3 (4.0-10.0)
[2017-12-04] MEDS: NICOTINE 14 MG/24 HOURS TOPICAL PATCH TD SCH (10:57)
[2017-12-04] MEDS: PRENATAL VITAMINS W/ FOLIC ACID TABLET (FP) PO SCH (10:57)
[2017-12-04 12:24] LABS: ANION GAP 10 (8-16); BLOOD UREA NITROGEN 15 mg/dL (7-18); CHLORIDE 100 mmol/L (98-107); CO2 25 mmol/L (21-32); GLUCOSE,RANDOM 159 mg/dL (74-106); POTASSIUM 4.3 mmol/L (3.5-5.1); SODIUM 135 mmol/L (136-145)
[2017-12-04 12:29] LABS: ALK PHOS 302 U/L (45-117); BILIRUBIN,TOTAL 0.5 mg/dL (0.2-1.0); CREATININE 0.6 mg/dL (0.7-1.3); SGOT/AST 11 U/L (15-37); SGPT/ALT 13 U/L (12-78); TOT PROT 8.4 g/dl (6.4-8.2)
--- NOTE | 2017-12-04 12:32 | PN ---
S CIWA - CIWA Score Nausea/Vomitin-No Nausea/No Vomiting Muscle Tremors: 4-Moderate,w/Arms Extend Anxiety: 4-Mod. Anxious/Guarded Agitation: 4-Moderately Restless Paroxysmal Sweats: 1-Minimal Palms Moist Orientation: 0-Oriented Tacttile Disturbances: 0-None Auditory Disturbances: 0-None Visual Disturbances: 0-None Headache: 0-None Present CIWA-Ar Total Score: 13 S COWS - Scale Resting Pulse: 0= [place] 80 or Below Sweatin= Chills/Flushing Restless Observation: 3= Extraneous Movement Pupil Size: 2= Moderately Dilated Bone or Joint Aches: 1= Mild Discomfort Runny Nose/ Eye Tearin= None GI Upset > 30mins: 0= None Tremor Observation of Outstretched Hands: 2= Slight Tremor Visible Yawning Observation: 1= 1-2x During Session Anxiety or Irritability: 2=Irritable/Anxious Goose Flesh Skin: 0=Smooth Skin COWS Score: 12 S Progress Note (SOAP) Subjective: ANXIETY,SWEATS,CHILLS,IRRITABILITY,FATIGUE. Objective: 12/04/17 12:26 Vital Signs Temperature 96.7 F L 12/04/17 09:28 Pulse Rate 67 12/04/17 09:28 Respiratory Rate 18 12/04/17 09:28 Blood Pressure 107/64 12/04/17 09:28 O2 Sat by Pulse Oximetry (%) Laboratory Last Values WBC 8.1 K/mm3 (4.0-10.0) 12/04/17 06:00 RBC 4.43 M/mm3 (4.00-5.60) 12/04/17 06:00 Hgb 13.5 GM/dL (11.7-16.9) 12/04/17 06:00 Hct 39.5 % (35.4-49) 12/04/17 06:00 MCV 89.3 fl (80-96) 12/04/17 06:00 MCH 30.5 pg (25.7-33.7) 12/04/17 06:00 MCHC 34.2 g/dl (32.0-35.9) 12/04/17 06:00 RDW 14.1 % (11.9-15.9) 12/04/17 06:00 Plt Count 260 K/MM3 (134-434) 12/04/17 06:00 MPV 8.9 fl (7.5-11.1) 12/04/17 06:00 HIV 1&2 Antibody Screen Negative 12/03/17 06:00 HIV P24 Antigen Negative 12/03/17 06:00 OTHER LABS PENDING Assessment: 12/04/17 12:32 WITHDRAWAL SX Plan: CONTINUE DETOX INCREASE PO FLUIDS.
--- NOTE | 2017-12-04 13:53 | EKG ---
Test Reason : Blood Pressure : / mmHG Vent. Rate : 058 BPM Atrial Rate : 058 BPM P-R Int : 126 ms QRS Dur : 090 ms QT Int : 406 ms P-R-T Axes : 047 064 041 degrees QTc Int : 398 ms SINUS BRADYCARDIA WITH SINUS ARRHYTHMIA OTHERWISE NORMAL ECG WHEN COMPARED WITH ECG OF 10-OCT-2017 14:39, NO SIGNIFICANT CHANGE WAS FOUND Confirmed by BRAYAN VASQUES MD ([id number]) on 12/04/2017 1:52:54 PM Referred By: Confirmed By:BRAYAN VASQUES MD
--- NOTE | 2017-12-04 17:37 | CONSULT ---
[facility] Psychiatric Consult - Data Date of interview: 12/04/17 Admission source: [facility] Identifying data: Readmission to [facility] for this 42 y/o male seeking detox treatment on for heroin,alcohol and cannabis dependence.Patient is single without children,homeless,unemployed and supported on food stamps. Substance Abuse History: Confirmed by patient in this session.Details in current [facility] report : Smoking history: Current every day smoker. Have you smoked in the past 12 months: Yes. Aproximately how many cigarettes per day: 10. Cigars Per Day: 0. Hx Chewing Tobacco Use: No. Initiated information on smoking cessation: Yes. 'Breaking Loose' booklet given: 12/03/17. - Substance & Tx. History. Hx Alcohol Use: Yes. Hx Substance Use: Yes. Substance Use Type : Cocaine, Heroin, Marijuana. Hx Substance Use Treatment: Yes ([facility]). - Substances Abused. Heroin. Route: Inhalation. Frequency: Daily. Amount used: 7-9 bags. Age of first use: 25. Date of Last Use: 12/03/17. Cocaine. Route: Inhalation. Frequency: Daily. Amount used: $30-40. Age of first use: 18. Date of Last Use: 12/02/17. Alcohol-whisky/beer. Route: Oral. Frequency: Daily. Amount used: 1 pt./1-6 pk. Age of first use: 17. Date of Last Use: 12/02/17 Medical History: Dyslipidemia and a distant history of appendectomy. Psychiatric History: No reported history of psychiatric hospitalizations.First contact with Psychiatry occurred in 2004 during patient's incarceration.Diagnosed then with MDD and Anxiety Disorder.Mr Hardwick indicates that he [facility].Prescribed xanax (dose not recalled) + celexa 20 mg/day + trazodone 100 mg/ hs.Last taken : June 2017 according to patient's own account.Denies history of suicide attempts. Physical/Sexual Abuse/Trauma History: Patient denies. Additional Comment: Urine Drug Screen Results: THC-Marijuana, YOKO-Cocaine, OPI- Opiates.Noted. Mental Status Exam - Mental Status Exam Alert and Oriented to: Time, Place, Person Cognitive Function: Good Patient Appearance: Well Groomed Mood: Nervous, Hopeful Affect: Mood Congruent Patient Behavior: Appropriate, Cooperative Speech Pattern: Clear, Appropriate Voice Loudness: Normal Thought Process: Goal Oriented Thought Disorder: Not Present Hallucinations: Denies Suicidal Ideation: Denies Homicidal Ideation: Denies Insight/Judgement: Poor Sleep: Poorly, Difficulty falling asleep Appetite: Good Muscle strength/Tone: Normal Gait/Station: Normal Psychiatric Findings - Problem List ([place] 1, 2,3) (1) Alcohol dependence with uncomplicated withdrawal Current Visit: Yes Status: Acute (2) Cocaine dependence, uncomplicated Current Visit: Yes Status: Acute (3) Opioid dependence with withdrawal Current Visit: Yes Status: Acute (4) Nicotine dependence Current Visit: Yes Status: Acute Qualifiers: Nicotine product type: cigarettes Substance use status: in withdrawal Qualified Code(s): F17.213 - Nicotine dependence, cigarettes, with withdrawal (5) Drug-induced mood disorder Current Visit: Yes Status: Acute (6) Depressive disorder Current Visit: Yes Status: Acute Comment: As per self-report.On medications. (7) Insomnia Current Visit: Yes Status: Acute - Initial Treatment Plan Initial Treatment Plan: Psychoeducation.Sleep hygiene.Detoxification.Medications : celexa 10 mg po daily + trazodone 100 mg po hs.Side effects/benefits of both drugs are discussed with the patient.Made aware of risk of priapism.Mr Hardwick agrees with this careplan.Observation.
[2017-12-04 20:02] LABS: URINE APPEARANCE CLEAR; URINE BILIRUBIN NEGATIVE (<2.0 mg/dL); URINE COLOR LTYELLOW; URINE GLUCOSE (UA) NEGATIVE (NEGATIVE); URINE KETONE NEGATIVE (NEGATIVE); URINE LEUK ESTERASE NEGATIVE (NEGATIVE); URINE NITRITE NEGATIVE (NEGATIVE); URINE PROTEIN NEGATIVE (NEGATIVE); URINE UROBILINOGEN NEGATIVE mg/dL (0.2-1.0)
[2017-12-04] MEDS: THIAMINE HCL 100 MG TABLET (FP) PO SCH (22:07)
[2017-12-04] MEDS: traZODone HCL 100 MG TABLET (FP) PO SCH (22:08)
[2017-12-05] MEDS: chlordiazePOXIDE HCL 25 MG CAPSULE PO SCH ×3 (05:29→17:30)
[2017-12-05] MEDS: PRENATAL VITAMINS W/ FOLIC ACID TABLET (FP) PO SCH (10:28)
[2017-12-05] MEDS: NICOTINE 14 MG/24 HOURS TOPICAL PATCH TD SCH (10:28)
[2017-12-05] MEDS: CITALOPRAM HYDROBROMIDE 10 MG TABLET (FP) PO SCH (10:28)
[2017-12-05] MEDS: METHADONE HCL 5 MG TABLET (FOR DETOX USE ONLY) PO SCH (10:28)
[2017-12-05] MEDS: BACITRACIN 0.9 GM PACKET TP SCH ×2 (10:29→22:49)
[2017-12-05] MEDS: SULFAMETHOXAZOLE/TRIMETHOPRIM 800MG/160MG D.S. TABLET PO SCH ×2 (10:29→22:49)
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
[2017-12-05] MEDS: TOLNAFTATE 1% CREAM 15 GM TUBE TP SCH ×2 (12:51→22:50)
[2017-12-05] MEDS: THIAMINE HCL 100 MG TABLET (FP) PO SCH (22:49)
[2017-12-05] MEDS: traZODone HCL 100 MG TABLET (FP) PO SCH (22:50)
[2017-12-05] MEDS: chlordiazePOXIDE 5 MG CAPSULE PO SCH (22:50)
[2017-12-06] MEDS: chlordiazePOXIDE 5 MG CAPSULE PO SCH ×3 (05:17→16:49)
[2017-12-06] MEDS: SULFAMETHOXAZOLE/TRIMETHOPRIM 800MG/160MG D.S. TABLET PO SCH ×2 (10:28→22:08)
[2017-12-06] MEDS: PRENATAL VITAMINS W/ FOLIC ACID TABLET (FP) PO SCH (10:28)
[2017-12-06] MEDS: CITALOPRAM HYDROBROMIDE 10 MG TABLET (FP) PO SCH (10:28)
[2017-12-06] MEDS: METHADONE HCL 5 MG TABLET (FOR DETOX USE ONLY) PO SCH (10:29)
[2017-12-06] MEDS: BACITRACIN 0.9 GM PACKET TP SCH ×2 (10:29→22:08)
[2017-12-06] MEDS: TOLNAFTATE 1% CREAM 15 GM TUBE TP SCH ×2 (10:31→22:10)
[2017-12-06] MEDS: NICOTINE 14 MG/24 HOURS TOPICAL PATCH TD SCH (10:31)
--- NOTE | 2017-12-06 12:31 | PN ---
BHS Progress Note (SOAP) Subjective: ALERT O X 3. OOB AMBULATING ON UNIT. SOCIALIZES WITH PEERS. SLIGHT ANXIETY BUT REPORTS DETOX PROCEEDING WELL. Objective: 12/06/17 12:30 Vital Signs Temperature 96.1 F L 12/06/17 10:00 Pulse Rate 73 12/06/17 10:00 Respiratory Rate 18 12/06/17 10:00 Blood Pressure 118/71 12/06/17 10:00 O2 Sat by Pulse Oximetry (%) Laboratory Tests 12/03/17 12/04/17 12/04/17 06:00 06:00 06:00 WBC 8.1 RBC 4.43 Hgb 13.5 Hct 39.5 MCV 89.3 MCH 30.5 MCHC 34.2 RDW 14.1 Plt Count 260 MPV 8.9 Sodium 135 L Potassium 4.3 Chloride 100 Carbon Dioxide 25 Anion Gap 10 BUN 15 D Creatinine 0.6 L D Creat Clearance w eGFR > 60 Random Glucose 159 H D Calcium 10.0 Total Bilirubin 0.5 D AST 11 L ALT 13 D Alkaline Phosphatase 302 H D Total Protein 8.4 H Albumin 4.0 Urine Color Urine Appearance Urine pH Ur Specific [place] Urine Protein Urine Glucose (UA) Urine Ketones Urine Blood Urine Nitrite Urine Bilirubin Urine Urobilinogen Ur Leukocyte Esterase RPR Titer HIV 1&2 Antibody Screen Negative HIV P24 Antigen Negative 12/04/17 12/04/17 06:00 15:00 WBC RBC Hgb Hct MCV MCH MCHC RDW Plt Count MPV Sodium Potassium Chloride Carbon Dioxide Anion Gap BUN Creatinine Creat Clearance w eGFR Random Glucose Calcium Total Bilirubin AST ALT Alkaline Phosphatase Total Protein Albumin Urine Color Ltyellow Urine Appearance Clear Urine pH 6.0 Ur Specific [place] 1.017 Urine Protein Negative Urine Glucose (UA) Negative Urine Ketones Negative Urine Blood Negative Urine Nitrite Negative Urine Bilirubin Negative Urine Urobilinogen Negative Ur Leukocyte Esterase Negative RPR Titer Nonreactive HIV 1&2 Antibody Screen HIV P24 Antigen Assessment: 12/06/17 12:30 WITHDRAWAL SX Plan: CONTINUE DETOX
[2017-12-06] MEDS: THIAMINE HCL 100 MG TABLET (FP) PO SCH (22:08)
[2017-12-06] MEDS: chlordiazePOXIDE HCL 10 MG CAPSULE PO SCH (22:08)
[2017-12-06] MEDS: traZODone HCL 100 MG TABLET (FP) PO SCH (22:08)
[2017-12-07] MEDS: chlordiazePOXIDE HCL 10 MG CAPSULE PO SCH ×3 (06:10→17:19)
[2017-12-07] MEDS ORDERED: METHADONE HCL 10 MG TABLET (FOR DETOX USE ONLY) PO SCH (10:00)
[2017-12-07] MEDS: BACITRACIN 0.9 GM PACKET TP SCH ×2 (10:15→22:15)
[2017-12-07] MEDS: SULFAMETHOXAZOLE/TRIMETHOPRIM 800MG/160MG D.S. TABLET PO SCH ×2 (10:15→22:14)
[2017-12-07] MEDS: TOLNAFTATE 1% CREAM 15 GM TUBE TP SCH ×2 (10:15→22:14)
[2017-12-07] MEDS: PRENATAL VITAMINS W/ FOLIC ACID TABLET (FP) PO SCH (10:15)
[2017-12-07] MEDS: NICOTINE 14 MG/24 HOURS TOPICAL PATCH TD SCH (10:16)
[2017-12-07] MEDS: CITALOPRAM HYDROBROMIDE 10 MG TABLET (FP) PO SCH (10:16)
--- NOTE | 2017-12-07 16:59 | PN ---
BHS Progress Note (SOAP) Subjective: Anxious, Sweating (both mild). Objective: PATIENT A & O X 3, OBSERVED AMBULATING ON UNIT. NO ACUTE DISTRESS. 12/07/17 16:57 Vital Signs Temperature 96.9 F L 12/07/17 15:01 Pulse Rate 84 12/07/17 15:01 Respiratory Rate 20 12/07/17 15:01 Blood Pressure 113/90 12/07/17 15:01 O2 Sat by Pulse Oximetry (%) Laboratory Tests 12/03/17 12/04/17 12/04/17 06:00 06:00 06:00 WBC 8.1 RBC 4.43 Hgb 13.5 Hct 39.5 MCV 89.3 MCH 30.5 MCHC 34.2 RDW 14.1 Plt Count 260 MPV 8.9 Sodium 135 L Potassium 4.3 Chloride 100 Carbon Dioxide 25 Anion Gap 10 BUN 15 D Creatinine 0.6 L D Creat Clearance w eGFR > 60 Random Glucose 159 H D Calcium 10.0 Total Bilirubin 0.5 D AST 11 L ALT 13 D Alkaline Phosphatase 302 H D Total Protein 8.4 H Albumin 4.0 Urine Color Urine Appearance Urine pH Ur Specific [place] Urine Protein Urine Glucose (UA) Urine Ketones Urine Blood Urine Nitrite Urine Bilirubin Urine Urobilinogen Ur Leukocyte Esterase RPR Titer HIV 1&2 Antibody Screen Negative HIV P24 Antigen Negative 12/04/17 12/04/17 06:00 15:00 WBC RBC Hgb Hct MCV MCH MCHC RDW Plt Count MPV Sodium Potassium Chloride Carbon Dioxide Anion Gap BUN Creatinine Creat Clearance w eGFR Random Glucose Calcium Total Bilirubin AST ALT Alkaline Phosphatase Total Protein Albumin Urine Color Ltyellow Urine Appearance Clear Urine pH 6.0 Ur Specific [place] 1.017 Urine Protein Negative Urine Glucose (UA) Negative Urine Ketones Negative Urine Blood Negative Urine Nitrite Negative Urine Bilirubin Negative Urine Urobilinogen Negative Ur Leukocyte Esterase Negative RPR Titer Nonreactive HIV 1&2 Antibody Screen HIV P24 Antigen LABS NOTED. Assessment: 12/07/17 16:58 WITHDRAWAL SYMPTOMS. Plan: CONTINUE DETOX. INCREASE DAILY PO FLUID INTAKE. PATIENT SCHEDULED FOR D/C TOMORROW.
[2017-12-07] MEDS: traZODone HCL 100 MG TABLET (FP) PO SCH (22:14)
[2017-12-07] MEDS: THIAMINE HCL 100 MG TABLET (FP) PO SCH (22:14)
[2017-12-08] MEDS ORDERED: METHADONE HCL 5 MG TABLET (FOR DETOX USE ONLY) PO SCH (06:00)
[2017-12-08 06:24] VITALS: BP 121/64; PULSE 75; TEMP 96.9
--- NOTE | 2017-12-08 08:44 | DS ---
[facility] Detox Discharge Summary Admission Date: 12/03/17 - Physical Exam Results Vital Signs: Vital Signs Temperature 96.9 F L 12/08/17 06:24 Pulse Rate 75 12/08/17 06:24 Respiratory Rate 18 12/08/17 06:24 Blood Pressure 121/64 12/08/17 06:24 O2 Sat by Pulse Oximetry (%) - Medication Discharge Medications: Ambulatory Orders Sulfamethoxazole/Trimethoprim [Bactrim Ds -] 1 tab PO BID 7 Days #14 tablet 07/15 - Diagnosis (1) Alcohol dependence with uncomplicated withdrawal Current Visit: Yes Status: Acute (2) Hyperlipidemia Current Visit: Yes Status: Chronic Qualifiers: Hyperlipidemia type: unspecified Qualified Code(s): E78.5 - Hyperlipidemia , unspecified (3) Nicotine dependence Current Visit: Yes Status: Acute Qualifiers: Nicotine product type: cigarettes Substance use status: in withdrawal Qualified Code(s): F17.213 - Nicotine dependence, cigarettes, with withdrawal (4) Opioid dependence with withdrawal Current Visit: Yes Status: Acute (5) Cocaine dependence, uncomplicated Current Visit: Yes Status: Acute (6) Abscess Current Visit: Yes Status: Acute (7) Tinea pedis Current Visit: Yes Status: Acute Qualifiers: Laterality: bilateral Qualified Code(s): B35.3 - Tinea pedis
[2017-12-08] MEDS: BACITRACIN 0.9 GM PACKET TP SCH (09:02)
[2017-12-08] MEDS: SULFAMETHOXAZOLE/TRIMETHOPRIM 800MG/160MG D.S. TABLET PO SCH (09:02)
[2017-12-08] MEDS: CITALOPRAM HYDROBROMIDE 10 MG TABLET (FP) PO SCH (09:02)
--- NOTE | 2017-12-08 15:27 | PN ---
[facility] Progress Note (SOAP) Subjective: DETOX COMPLETED. ALERT O X 3. NAD. PT TO FOLLOW UP WITH [facility] OR [facility] WHEN BED AVAILABLE. Objective: 12/08/17 15:26 Vital Signs - 24 hr 12/07/17 12/07/17 12/08/17 17:24 21:54 00:30 Temperature 96.9 F L 97.1 F L Pulse Rate 93 H 89 Respiratory 20 18 18 Rate Blood Pressure 115/74 126/79 12/08/17 12/08/17 03:30 06:24 Temperature 96.9 F L Pulse Rate 75 Respiratory 18 18 Rate Blood Pressure 121/64 Laboratory Tests 12/03/17 12/04/17 12/04/17 06:00 06:00 06:00 WBC 8.1 RBC 4.43 Hgb 13.5 Hct 39.5 MCV 89.3 MCH 30.5 MCHC 34.2 RDW 14.1 Plt Count 260 MPV 8.9 Sodium 135 L Potassium 4.3 Chloride 100 Carbon Dioxide 25 Anion Gap 10 BUN 15 D Creatinine 0.6 L D Creat Clearance w eGFR > 60 Random Glucose 159 H D Calcium 10.0 Total Bilirubin 0.5 D AST 11 L ALT 13 D Alkaline Phosphatase 302 H D Total Protein 8.4 H Albumin 4.0 Urine Color Urine Appearance Urine pH Ur Specific [place] Urine Protein Urine Glucose (UA) Urine Ketones Urine Blood Urine Nitrite Urine Bilirubin Urine Urobilinogen Ur Leukocyte Esterase RPR Titer HIV 1&2 Antibody Screen Negative HIV P24 Antigen Negative 12/04/17 12/04/17 06:00 15:00 WBC RBC Hgb Hct MCV MCH MCHC RDW Plt Count MPV Sodium Potassium Chloride Carbon Dioxide Anion Gap BUN Creatinine Creat Clearance w eGFR Random Glucose Calcium Total Bilirubin AST ALT Alkaline Phosphatase Total Protein Albumin Urine Color Ltyellow Urine Appearance Clear Urine pH 6.0 Ur Specific [place] 1.017 Urine Protein Negative Urine Glucose (UA) Negative Urine Ketones Negative Urine Blood Negative Urine Nitrite Negative Urine Bilirubin Negative Urine Urobilinogen Negative Ur Leukocyte Esterase Negative RPR Titer Nonreactive HIV 1&2 Antibody Screen HIV P24 Antigen Assessment: 12/08/17 15:26 MEDICALLY STABLE Plan: D/C PT TODAY.
--- NOTE | 2017-12-08 15:29 | DS ---
[facility] Detox Discharge Summary Admission Date: 12/03/17 Discharge Date: 12/08/17 - History Present History: Alcohol Dependence, Cocaine Dependence, Opioid Dependence Additional Comments: DETOX COMPLETED. ALERT O X 3. NAD. PT [facility] AT [facility]. PT TO FOLLOW UP WITH AFTERCARE WHEN BED AVAILABLE IN REHAB. - Physical Exam Results Vital Signs: Vital Signs Temperature 96.9 F L 12/08/17 06:24 Pulse Rate 75 12/08/17 06:24 Respiratory Rate 18 12/08/17 06:24 Blood Pressure 121/64 12/08/17 06:24 O2 Sat by Pulse Oximetry (%) - Treatment Hospital Course: Detox Protocol Followed, Detoxed Safely, Responded well, Discharged Condition Good, Rehab Referral Accepted Patient has Accepted a Rehab Referral to: [facility] - Medication Discharge Medications: Ambulatory Orders Sulfamethoxazole/Trimethoprim [Bactrim Ds -] 1 tab PO BID 7 Days #14 tablet 07/15 - Diagnosis (1) Alcohol dependence with uncomplicated withdrawal Status: Acute (2) Hyperlipidemia Status: Chronic Qualifiers: Hyperlipidemia type: unspecified Qualified Code(s): E78.5 - Hyperlipidemia , unspecified (3) Nicotine dependence Status: Acute Qualifiers: Nicotine product type: cigarettes Substance use status: in withdrawal Qualified Code(s): F17.213 - Nicotine dependence, cigarettes, with withdrawal (4) Opioid dependence with withdrawal Status: Acute (5) Cocaine dependence, uncomplicated Status: Acute (6) Abscess Status: Acute (7) Tinea pedis Status: Acute Qualifiers: Laterality: bilateral Qualified Code(s): B35.3 - Tinea pedis - AMA Did Patient Leave Against Medical Advice: No
== END 2017-12-08 09:33 | disposition home or self-care (01) | DRG 773 ==
LOC: YASAS 12:56 → Y3N 17:38
PROVIDERS: ADMIT Internal Medicine; ATTEND Internal Medicine
PROC: HZ2ZZZZ Detoxification Services for Substance Abuse Treatment (ICD-10-PCS; principal; 2017-12-03)
DX: F11.23 Opioid dependence with withdrawal (principal); F10.230 Alcohol dependence with withdrawal, uncomplicated; F14.20 Cocaine dependence, uncomplicated; F17.213 Nicotine dependence, cigarettes, with withdrawal; F32.9 Major depressive disorder, single episode, unspecified; L02.91 Cutaneous abscess, unspecified; G47.00 Insomnia, unspecified; E78.5 Hyperlipidemia, unspecified; F19.24 Other psychoactive substance dependence with psychoactive substance-induced mood disorder
CPT/HCPCS: 36415; 80053; 81003; 85027; 86593; 87389; 93005; 93010

== ENCOUNTER 2018-01-14 08:45 | Inpatient (IN) | payer OTHER ==
[2018-01-14 09:36] VITALS: BMI 28.0
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
[2018-01-14] MEDS ORDERED: guaiFENesin/D-METHORPHAN HB 10 ML UNIT-DOSE CUPS PO PRN (11:47)
[2018-01-14] MEDS ORDERED: P-EPHED 60MG/TRIPROLIDI 2.5MG TABLET PO PRN (11:47)
[2018-01-14] MEDS ORDERED: LOPERAMIDE HCL 2 MG CAPSULE PO PRN (11:47)
[2018-01-14] MEDS ORDERED: hydrOXYzine PAMOATE 50 MG CAPSULE (FP) PO PRN (11:47)
[2018-01-14] MEDS ORDERED: MAGNESIUM CITRATE 300 ML BOTTLE PO PRN (11:47)
[2018-01-14] MEDS ORDERED: MAGNESIUM HYDROX 2400MG/30ML ORAL SUSPENSION 30 ML CUP PO PRN (11:47)
[2018-01-14] MEDS ORDERED: NICOTINE POLACRILEX 2 MG GUM BUC PRN (11:47)
[2018-01-14] MEDS ORDERED: IBUPROFEN 400 MG TABLET (FP) PO PRN (11:47)
[2018-01-14] MEDS ORDERED: MENTHOL/PHENOL 1 EACH UD MM PRN (11:47)
[2018-01-14] MEDS ORDERED: MAG HYDROX/AL HYDROX/SIMETH 30 ML UNIT-DOSE CUP PO PRN (11:47)
[2018-01-14] MEDS ORDERED: ACETAMINOPHEN 325 MG TABLET (FP) PO PRN (11:47)
[2018-01-14] MEDS: NICOTINE 14 MG/24 HOURS TOPICAL PATCH TD SCH (12:07)
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
[2018-01-14 14:45] LABS: HEMATOCRIT 45.5 % (35.4-49); HEMOGLOBIN 15.1 GM/dL (11.7-16.9); MCH 29.7 pg (25.7-33.7); MCHC 33.1 g/dl (32.0-35.9); MEAN CELL VOLUME 89.7 fl (80-96); MEAN PLT VOLUME 8.1 fl (7.5-11.1); PLATELET COUNT 265 K/MM3 (134-434); RBC 5.07 M/mm3 (4.00-5.60); WHITE BLOOD COUNT 8.7 K/mm3 (4.0-10.0)
[2018-01-14 14:55] LABS: CHLORIDE 98 mmol/L (98-107); POTASSIUM 4.6 mmol/L (3.5-5.1); SODIUM 139 mmol/L (136-145)
[2018-01-14 15:07] LABS: ALBUMIN 3.9 g/dl (3.4-5.0); ALK PHOS 94 U/L (45-117); ANION GAP 6 (8-16); BILIRUBIN,TOTAL 0.6 mg/dL (0.2-1.0); BLOOD UREA NITROGEN 15 mg/dL (7-18); CALCIUM 9.4 mg/dL (8.5-10.1); CO2 35 mmol/L (21-32); CREATININE 1.1 mg/dL (0.7-1.3); GLUCOSE,RANDOM 119 mg/dL (74-106); SGOT/AST 24 U/L (15-37); SGPT/ALT 41 U/L (12-78); TOT PROT 7.6 g/dl (6.4-8.2)
[2018-01-14 18:10] LABS: URINE APPEARANCE CLEAR; URINE BILIRUBIN NEGATIVE (<2.0 mg/dL); URINE COLOR YELLOW; URINE GLUCOSE (UA) NEGATIVE (NEGATIVE); URINE KETONE NEGATIVE (NEGATIVE); URINE LEUK ESTERASE NEGATIVE (NEGATIVE); URINE NITRITE NEGATIVE (NEGATIVE); URINE PROTEIN NEGATIVE (NEGATIVE); URINE UROBILINOGEN NEGATIVE mg/dL (0.2-1.0)
[2018-01-14] MEDS ORDERED: MELATONIN 5 MG TABLETS PO PRN (22:00)
[2018-01-14] MEDS ORDERED: traZODone HCL 100 MG TABLET (FP) PO SCH (22:00)
[2018-01-14] MEDS ORDERED: THIAMINE HCL 100 MG TABLET (FP) PO SCH (22:00)
[2018-01-15 07:14] VITALS: BP 113/75; PULSE 92; TEMP 98.1
[2018-01-15] MEDS ORDERED: CITALOPRAM HYDROBROMIDE 20 MG TABLET (FP) PO SCH (10:00)
[2018-01-15] MEDS ORDERED: PRENATAL VITAMINS W/ FOLIC ACID TABLET (FP) PO SCH (10:00)
[2018-01-15] MEDS: NICOTINE 14 MG/24 HOURS TOPICAL PATCH TD SCH (10:28)
--- NOTE | 2018-01-15 10:47 | EKG ---
Test Reason : Blood Pressure : / mmHG Vent. Rate : 062 BPM Atrial Rate : 062 BPM P-R Int : 124 ms QRS Dur : 086 ms QT Int : 388 ms P-R-T Axes : 053 069 038 degrees QTc Int : 393 ms NORMAL SINUS RHYTHM NORMAL ECG WHEN COMPARED WITH ECG OF 03-DEC-2017 22:08, NO SIGNIFICANT CHANGE WAS FOUND Confirmed by BRAYAN VASQUES MD ([id number]) on 01/15/2018 10:47:13 AM Referred By: Confirmed By:BRAYAN VASQUES MD
[2018-01-15] MEDS ORDERED: cloNIDine HCL 0.1 MG TABLET PO ONE (14:19)
--- NOTE | 2018-01-15 14:28 | PN ---
[facility] Progress Note Note: PATIENT PRESENTS WITH C/O CHILLS, ANXIETY, SWEATING AND BODY ACHES. Laboratory Tests 01/14/18 01/14/18 01/14/18 12:00 12:00 12:00 WBC 8.7 RBC 5.07 Hgb 15.1 D Hct 45.5 D MCV 89.7 MCH 29.7 MCHC 33.1 RDW 14.0 Plt Count 265 MPV 8.1 Sodium 139 Potassium 4.6 Chloride 98 Carbon Dioxide 35 H D Anion Gap 6 L BUN 15 Creatinine 1.1 D Creat Clearance w eGFR > 60 Random Glucose 119 H D Calcium 9.4 Total Bilirubin 0.6 AST 24 D ALT 41 D Alkaline Phosphatase 94 D Total Protein 7.6 Albumin 3.9 Urine Color Urine Appearance Urine pH Ur Specific [place] Urine Protein Urine Glucose (UA) Urine Ketones Urine Blood Urine Nitrite Urine Bilirubin Urine Urobilinogen Ur Leukocyte Esterase RPR Titer Nonreactive 01/14/18 Unknown WBC RBC Hgb Hct MCV MCH MCHC RDW Plt Count MPV Sodium Potassium Chloride Carbon Dioxide Anion Gap BUN Creatinine Creat Clearance w eGFR Random Glucose Calcium Total Bilirubin AST ALT Alkaline Phosphatase Total Protein Albumin Urine Color Yellow Urine Appearance Clear Urine pH 6.0 Ur Specific [place] 1.023 Urine Protein Negative Urine Glucose (UA) Negative Urine Ketones Negative Urine Blood Negative Urine Nitrite Negative Urine Bilirubin Negative Urine Urobilinogen Negative Ur Leukocyte Esterase Negative RPR Titer Vital Signs Temperature 98.1 F 01/15/18 07:12 Pulse Rate 92 H 01/15/18 07:12 Respiratory Rate 20 01/15/18 07:12 Blood Pressure 113/75 01/15/18 07:12 O2 Sat by Pulse Oximetry (%) OBJ: GENERAL: ALERT AND ORIENTED X 3. ANXIOUS AND IRRITABLE SKIN: WARM AND MOIST EXT: FULL ROM, NO EDEMA WITHDRAWAL SYNDROME: WILL ORDER CLONIDINE 0.1MG PO STAT CONTINUE TO MONITOR CLINICALLY
--- NOTE | 2018-01-15 20:26 | PN ---
S Progress Note Note: Patient left AMA, does not wish to continue rehab.
== END 2018-01-15 20:33 | disposition left against medical advice (07) | DRG 770 ==
LOC: YASAS 08:45 → Y3W 11:29
PROVIDERS: ADMIT Psychiatry & Neurology Psychiatry; ATTEND Psychiatry & Neurology Psychiatry
PROC: HZ42ZZZ Group Counseling for Substance Abuse Treatment, Cognitive-Behavioral (ICD-10-PCS; principal; 2018-01-14)
DX: F11.20 Opioid dependence, uncomplicated (principal); F10.20 Alcohol dependence, uncomplicated; F14.20 Cocaine dependence, uncomplicated; F17.213 Nicotine dependence, cigarettes, with withdrawal; F39 Unspecified mood [affective] disorder; F19.280 Other psychoactive substance dependence with psychoactive substance-induced anxiety disorder; F19.282 Other psychoactive substance dependence with psychoactive substance-induced sleep disorder; E78.5 Hyperlipidemia, unspecified; E78.00 Pure hypercholesterolemia, unspecified; R76.11 Nonspecific reaction to tuberculin skin test without active tuberculosis
CPT/HCPCS: 36415; 80053; 81003; 85027; 86593; 93005; 93010; J0735